=== PATIENT | female | born 1965 | race Caucasian/White ===

== ENCOUNTER 2017-10-10 13:30 | Emergency (ER) | payer OTHER ==
[~2017-10-10] VITALS: Ht 167.6 cm; Wt 115.2 kg
[~2017-10-10 13:30] MED LIST: ASPIRIN BUFFER325 MG PO; ASPIRIN325 MG PO; ATENOLOL50 MG PO; ATROVENT HFA12.9 GM NEB; BUPROPION XL300 MG PO; CARAFATE1 GM PO; CLONAZEPAM0.5 MG; CLONAZEPAM0.5 MG PO; COLACE100 MG PO; CYMBALTA60 MG; DEXILANT60 MG; FLUOXETINE HCL20 M1 PO; GABAPENTIN300 MG PO; GLIMEPIRIDE2 MG PO; HUMALOG100 UNIT/3 SQ; INVOKAMET PO; ISOSORBIDE MONO30 MG PO; Insulin Detemir SQ; Insulin Lispro SQ; LANTUS 3ML100 UNITS/ SQ; LEVOTHYROXINE50 MCG PO; MAGNESIUM OXID400 MG PO; METFORMIN HCL500 MG PO; METOPROLOL SUCC25 MG PO; METOPROLOL TART25 MG PO; MONTELUKAST SOD10 MG PO; MULTI-VITAMIN1 EACH PO; NORCO 5-325 TA1 EACH PO; OLANZAPINE10 MG PO; OLANZAPINE5 MG PO; OMEPRAZOLE20 M1 PO; PANTOPRAZOLE SO40 MG PO; POTASSIUM CHLO10 ME1 PO; TIZANIDINE HCL4 MG PO; TOPIRAMATE100 MG PO; TORSEMIDE20 MG PO
--- OUTSIDE RECORDS SUMMARY | 2017-10-10 13:33 | XMS REPORT ---
Author Author [facility] Address Unknown Phone Unavailable Care Team Providers Care Yarn Weight And Strength Tester Name Role Phone FRANNIE STEINBERG Unavailable Unavailable KATE BANGURA Unavailable Unavailable Problems This patient has no known problems. Allergies, Adverse Reactions, Alerts This patient has no known allergies or adverse reactions. Medications This patient has no known medications. Results Test Description Test Time Test Comments Text Results Atomic Results Result Comments ECHO COMPLETE (ECHOCARDIOGRAM) [place] [address] Patient Name : DEVAN REAL MR #: [id number] : 1965 Age/Sex: 51/F Adm Physician : FRANNIE STEINBERG MD Admit Date : 05/05/17 Location : MED/SURG3 Room/Bed : [facility] REPORT: Cardiology Report DATE OF STUDY: May 05, 2017 ECHOCARDIOGRAM M-MODE: Top normal left atrial size. Left ventricular hypertrophy. Normal contractility. Normal mitral aortic valves. No pericardial effusion. SECTOR SCAN: Top normal left atrial size measuring 6 x 3 cm. Left ventricular hypertrophy. Normal contractility. Ejection fraction is approximately 60%. Mitral aortic and tricuspid valves are grossly normal. There is no pericardial effusion. CARDIAC DOPPLER STUDY WITH COLOR: Trace mitral tricuspid and pulmonic regurgitation. CONCLUSIONS: 1. Trace mitral regurgitation with top normal left atrial size measuring 6 x 3 cm. 2. Trace mitral and pulmonic regurgitation with pulmonary artery systolic pressure estimated at 34 mmHg. 3. Left ventricular ejection fraction is approximately 60%. DD : 05/05/2017 13:47 Job#: [id number] cc: JODI CHOWDARY MD Signature Date Dictated By: FRANNIE STEINBERG MD Transcribed By: MIREILLE on 05/05/17 <Electronically signed by FRANNIE STEINBERG MD><<Signature on File>>05/07/17 1126 COPY TO: CHEST SINGLE (PORTABLE) [place] [address] Patient Name: DEVAN REAL MR #: [id number] : 1965 Age/Sex: 51/F Req #: [id number] Adm Physician: Ordered by: DILIA LOMELI MD Report #: [id number] Location: ER Room/Bed: ___ Procedure: [id number] DX/CHEST SINGLE (PORTABLE) Exam Date: 05/04/17 Exam Time: 2345 REPORT STATUS: Signed EXAM: CHEST SINGLE (PORTABLE), AP 1 view DATE: 05/04/2017 11:24 PM Time stamp on exam: 2345 hours INDICATION: Chest pain COMPARISON: None FINDINGS: LINES/TUBES: None LUNGS: No consolidations or edema. PLEURA: No effusions or pneumothorax. HEART AND MEDIASTINUM: Normal size and contour. BONES AND SOFT TISSUES: No acute findings. IMPRESSION: No acute thoracic abnormality. Signed by: Dr. Janette Lowery M.D. on 2016 12:05 AM Dictated By: JANETTE LOWERY MD 0005 Transcribed By: MILI on 05/05/17 0005 COPY TO: DILIA LOMELI MD CT BRAIN WO [address] [place], [place] [address] Patient Name: DEVAN REAL MR #: [id number] : 1965 Age/Sex: 51/F Req #: [id number] Adm Physician: Ordered by: KATE BANGURA MD Report #: [id number] Location: ER Room/Bed: Procedure: [id number] CT/CT BRAIN WO Exam Date: Exam Time: REPORT STATUS: Signed History: Headache Comparison studies: None Technique: Axial images were obtained from the skull base to the vertex. Coronal and sagittal reconstructions obtained from the axial data. Findings: Scalp/skull: No abnormalities. No fractures, blastic or lytic lesions. Extra-axial spaces: No masses. No fluid collections. Brain sulci: Appropriate for age. Ventricles: Normal in size and configuration. No hydrocephalus. Parenchyma: No abnormal densities. No masses, hemorrhage, acute or chronic cortical vascular insults. Sellar/suprasellar region: No abnormalities Craniocervical junction: Patent foramen magnum. No Chiari one malformation. IMPRESSION: No abnormalities Signed by: Dr. Martin Benitez M.D. on 04/10/2017 3:15 AM Dictated By: MARTIN BENITEZ MD, MD 4 COPY TO: KATE BANGURA MD CT ABDOMEN/PELVIS WO [place] [id number] [place] [address] Patient Name: DEVAN REAL MR #: [id number] : 1965 Age/Sex: 51/F Req #: [id number] Adm Physician: Ordered by: KATE BANGURA MD Report #: [id number] Location: ER Room/Bed: Procedure: [id number] CT/CT ABDOMEN/PELVIS WO Exam Date: 04/09/17 Exam Time: 0121 REPORT STATUS: Signed EXAM: CT ABDOMEN AND PELVIS without IV CONTRAST DATE: 04/08/2017 11:53 PM Time stamp on Exam: 0123 hours INDICATION: Abdominal pain, nausea COMPARISON: MRCP November 08, 2007 TECHNIQUE: The abdomen and pelvis were scanned using a multidetector helical scanner. Coronal and sagittal reformations were obtained. Routine protocol performed. IV Contrast: None Oral Contrast: Gastrografin CTDIvol has been reviewed. It is below the limits set by the Radiation Protocol Committee (RPC). FINDINGS: LOWER THORAX: No consolidations LIVER : Diffuse hepatic steatosis. Hepatomegaly. BILIARY: The gallbladder has been removed. No ductal dilation. SPLEEN: No masses PANCREAS: There is an approximately 4 cm stent that extends from the second portion of the duodenum into the pancreatic head. ADRENALS: No nodules KIDNEYS: No nephroureterolithiasis or hydronephrosis. GI TRACT: No distention, wall thickening or evidence of obstruction. Nonspecific debris in the stomach. VESSELS: Unremarkable PERITONEUM/RETROPERITONEUM: No free air or fluid LYMPH NODES: No lymphadenopathy REPRODUCTIVE ORGANS: Not visualized BLADDER: Unremarkable SOFT TISSUES: Nonspecific 1.5 x 1.1 cm nodule in the posterior medial aspect of the right breast. BONES: No suspicious bone lesions. IMPRESSION: 1. Hepatomegaly and hepatic steatosis. 2. There is a 4 cm stent that extends from the second portion of the duodenum into the pancreatic head, presumably a pancreatic duct stent. Limited evaluation for pancreatic masses secondary to lack of IV contrast. 3. Nonspecific 1.5 x 1.1 cm nodule in the posterior medial aspect of the right breast. Correlation with breast imaging is recommended. Signed by: Dr. Janette Lowery M.D. on 04/09/2017 2:09 AM Dictated By: JANETTE LOWERY MD 8 Transcribed By: MILI on 04/09/17208 COPY TO: KATE BANGURA MD
[2017-10-10] MEDS ORDERED: ASPIRIN 81 MG CHEW TAB PO ONE (14:30)
[2017-10-10 14:38] LABS: BILIRUBIN,URINE NEGATIVE (NEGATIVE); KETONES,URINE NEGATIVE (NEGATIVE); LEUKOCYTE ESTERASE ,URINE NEGATIVE (NEGATIVE); NITRITE,URINE NEGATIVE (NEGATIVE); PROTEIN,URINE DIPSTICK NEGATIVE (NEGATIVE); URINE UROBILINOGEN 0.2 mg/dL (0.2 - 1)
[2017-10-10 14:45] LABS: CLARITY,URINE CLEAR (CLEAR); COLOR,URINE YELLOW (YELLOW)
[2017-10-10] MEDS ORDERED: IBUPROFEN 600 MG TAB PO STA (14:50)
[2017-10-10 15:03] LABS: BASOPHILS # (AUTO) 0.1 (0.0-0.1); BASOPHILS % 0.5 % (0.0-1.0); EOSINOPHILS # (AUTO) 0.5 (0.0-0.4); EOSINOPHILS % 4.6 % (0.0-6.0); HEMATOCRIT 44.1 % (34.2-44.1); HEMOGLOBIN 14.4 g/dL (12.0-16.0); LYMPHOCYTES # (AUTO) 2.5 (1.0-3.2); LYMPHOCYTES % 25.8 % (18.0-39.1); MEAN CORPUSCULAR HEMOGLOBIN 30.1 pg (28-32); MEAN CORPUSCULAR HGB CONC 32.7 g/dL (31-35); MEAN CORPUSCULAR VOLUME 92.1 fL (81-99); MONOCYTES # (AUTO) 0.7 (0.2-0.8); MONOCYTES % 7.3 % (4.4-11.3); NEUTROPHILS % 61.5 % (38.7-80.0); PLATELET COUNT 274 x10e3/uL (140-360); RED BLOOD COUNT 4.79 x10e6/uL (3.6-5.1); RED CELL DISTRIBUTION WIDTH 14.6 % (11.7-14.4)
[2017-10-10 15:12] LABS: BACTERIA,URINE FEW /HPF; EPITHELIAL CELLS,URINE MODERATE /LPF
[2017-10-10 15:13] LABS: INR 0.94; PROTHROMBIN TIME 11.8 seconds (11.9-14.5)
[2017-10-10 15:14] LABS: PARTIAL THROMBOPLASTIN TIME 28.2 seconds (23.8-35.5)
--- NOTE | 2017-10-10 15:19 | Diagnostic Imaging Report ---
PROCEDURE: A single AP view of the chest. COMPARISON: Patients [facility], CT, CT ABDOMEN/PELVIS WO, 04/09/2017, 1:21. Patients [facility], DX, CHEST SINGLE (PORTABLE), 05/04/2017, 23:45. INDICATIONS: CHEST PAIN TO CENTER OF CHEST FINDINGS: Lines/tubes: None. Lungs: The lungs are well inflated and clear. There is no evidence of pneumonia or pulmonary edema. Pleura: There is no pleural effusion or pneumothorax. Stable eventration of the right hemidiaphragm. Heart and mediastinum: The heart and the mediastinum are unremarkable. Bones: No acute bony abnormality. IMPRESSION: 1. No acute cardiopulmonary abnormalities. Vic Pham M.D. Dictated by: Vic Pham M.D. on 10/10/2017 at 15:19 Electronically approved by: Vic Pham M.D. on 10/10/2017 at 15:19
[2017-10-10 15:22] LABS: ALANINE AMINOTRANSFERASE 98 IU/L (0-55); ALBUMIN 3.9 g/dL (3.5-5.0); ALBUMIN/GLOBULIN RATIO 0.9 (0.8-2.0); ALKALINE PHOSPHATASE 160 IU/L (40-150); ANION GAP 13.7 mmol/L (8-16); BLOOD UREA NITROGEN 17 mg/dL (7-26); BUN/CREATININE RATIO 20 (6-25); CALCIUM 9.2 mg/dL (8.4-10.2); CARBON DIOXIDE 21 mmol/L (22-29); CHLORIDE 110 mmol/L (98-107); CREATINE KINASE 58 IU/L (29-168); CREATININE, SERUM 0.86 mg/dL (0.57-1.11); EST GLOMERULAR FILTRATION RATE > 60 ML/MIN (60-); GLUCOSE 214 mg/dL (74-118); POTASSIUM 3.7 mmol/L (3.5-5.1); SODIUM 141 mmol/L (136-145)
[2017-10-10 23:41] VITALS: BP 121/89
== END 2017-10-10 20:40 | disposition home or self-care (01) ==
LOC: ER 13:30
DX: R07.89 Other chest pain (principal); I10 Essential (primary) hypertension; E11.9 Type 2 diabetes mellitus without complications
CPT/HCPCS: 36415; 71045; 80053; 81001; 82550; 82553; 83880; 84484; 85025; 85610; 85730; 87086; 93005; 99284

== ENCOUNTER 2017-12-12 20:35 | Emergency (ER) | payer OTHER ==
[~2017-12-12] VITALS: Ht 167.6 cm; Wt 115.2 kg
[2017-12-12 21:12] LABS: BASOPHILS # (AUTO) 0.1 (0.0-0.1); BASOPHILS % 0.6 % (0.0-1.0); EOSINOPHILS # (AUTO) 0.4 (0.0-0.4); EOSINOPHILS % 4.1 % (0.0-6.0); HEMATOCRIT 42.6 % (34.2-44.1); HEMOGLOBIN 14.2 g/dL (12.0-16.0); LYMPHOCYTES # (AUTO) 2.7 (1.0-3.2); LYMPHOCYTES % 28.2 % (18.0-39.1); MEAN CORPUSCULAR HGB CONC 33.3 g/dL (31-35); MEAN CORPUSCULAR VOLUME 89.9 fL (81-99); MONOCYTES # (AUTO) 0.6 (0.2-0.8); MONOCYTES % 6.7 % (4.4-11.3); NEUTROPHILS # (AUTO) 5.8 (2.1-6.9); NEUTROPHILS % 60.1 % (38.7-80.0); PLATELET COUNT 247 x10e3/uL (140-360); RED BLOOD COUNT 4.74 x10e6/uL (3.6-5.1); RED CELL DISTRIBUTION WIDTH 13.7 % (11.7-14.4)
[2017-12-12 21:17] LABS: CLARITY,URINE CLEAR (CLEAR); COLOR,URINE YELLOW (YELLOW)
[2017-12-12 21:18] LABS: AMPHETAMINES SCREEN,URINE NEGATIVE (NEGATIVE); BENZODIAZEPINES SCREEN,URINE NEGATIVE (NEGATIVE); BILIRUBIN,URINE NEGATIVE (NEGATIVE); KETONES,URINE NEGATIVE (NEGATIVE); LEUKOCYTE ESTERASE ,URINE NEGATIVE (NEGATIVE); NITRITE,URINE NEGATIVE (NEGATIVE); PHENCYCLIDINE SCREEN,URINE NEGATIVE (NEGATIVE); PREGNANCY TEST, URINE NEGATIVE (NEGATIVE); PROTEIN,URINE DIPSTICK NEGATIVE (NEGATIVE); URINE UROBILINOGEN 0.2 mg/dL (0.2 - 1)
[2017-12-12 21:22] LABS: INR 0.97; MUCUS,URINE FEW (RARE); PROTHROMBIN TIME 12.1 seconds (11.9-14.5); RBC,URINE 0-5 /HPF (0-5); WBC,URINE (MAN) 0-5 /HPF (0-5)
[2017-12-12 21:23] LABS: PARTIAL THROMBOPLASTIN TIME 27.1 seconds (23.8-35.5)
[2017-12-12 21:28] LABS: ACETAMINOPHEN < 3 ug/mL (10-30); SALICYLATE < 5.0 mg/dL (0-30)
[2017-12-12 21:31] LABS: ALANINE AMINOTRANSFERASE 128 IU/L (0-55); ALBUMIN 3.6 g/dL (3.5-5.0); ALBUMIN/GLOBULIN RATIO 0.9 (0.8-2.0); ALKALINE PHOSPHATASE 166 IU/L (40-150); ANION GAP 16.2 mmol/L (8-16); BLOOD UREA NITROGEN 6 mg/dL (7-26); BUN/CREATININE RATIO 8 (6-25); CARBON DIOXIDE 25 mmol/L (22-29); CHLORIDE 102 mmol/L (98-107); CREATINE KINASE 91 IU/L (29-168); CREATININE, SERUM 0.78 mg/dL (0.57-1.11); EST GLOMERULAR FILTRATION RATE > 60 ML/MIN (60-); GLUCOSE 234 mg/dL (74-118); POTASSIUM 3.2 mmol/L (3.5-5.1); SODIUM 140 mmol/L (136-145)
[2017-12-12 21:50] LABS: THYROID STIMULATING HORMONE 12.722 uIU/mL (0.350-4.940)
[2017-12-12] MEDS ORDERED: POTASSIUM CHLORIDE 20 MEQ TAB CR PO ONE (22:15)
[2017-12-12] MEDS ORDERED: OLANZAPINE5 MG PO (22:48)
[2017-12-12] MEDS ORDERED: CLONAZEPAM0.5 MG PO (22:48)
[2017-12-12] MEDS ORDERED: PANTOPRAZOLE SO40 MG PO (22:48)
[2017-12-12] MEDS ORDERED: METOCLOPRAMIDE10 MG PO (22:48)
[2017-12-12] MEDS ORDERED: SYNTHROID75 MCG PO (22:48)
[2017-12-12] MEDS ORDERED: POTASSIUM CHLO10 ME1 PO (22:48)
[2017-12-13] MEDS ORDERED: ACETAMINOPHEN 325 MG TAB PO ONE (01:15)
[2017-12-13] MEDS ORDERED: SYNJARDY XR PO (03:25)
[2017-12-13 03:56] VITALS: BP 139/87
== END 2017-12-13 04:45 ==
LOC: ER 20:35
DX: F33.1 Major depressive disorder, recurrent, moderate (principal); R45.851 Suicidal ideations; E11.9 Type 2 diabetes mellitus without complications; E03.9 Hypothyroidism, unspecified; I50.9 Heart failure, unspecified; F41.0 Panic disorder [episodic paroxysmal anxiety]
CPT/HCPCS: 36415; 80053; 80307; 80320; 80329; 81001; 81025; 82550; 82553; 82948; 84443; 84484; 85025; 85610; 85730; 87086; 93005; 99284

== ENCOUNTER 2018-02-01 23:12 | Emergency (ER) | payer OTHER ==
[~2018-02-01] VITALS: Ht 167.6 cm; Wt 115.2 kg
[~2018-02-01 23:12] MED LIST changes: +METOCLOPRAMIDE10 MG PO; +SYNJARDY XR PO; +SYNTHROID75 MCG PO
[2018-02-01 23:33] LABS: BASOPHILS # (AUTO) 0.1 (0.0-0.1); BASOPHILS % 0.6 % (0.0-1.0); EOSINOPHILS # (AUTO) 0.4 (0.0-0.4); EOSINOPHILS % 3.2 % (0.0-6.0); HEMATOCRIT 40.2 % (34.2-44.1); HEMOGLOBIN 13.7 g/dL (12.0-16.0); LYMPHOCYTES # (AUTO) 3.3 (1.0-3.2); LYMPHOCYTES % 26.7 % (18.0-39.1); MEAN CORPUSCULAR HGB CONC 34.1 g/dL (31-35); MONOCYTES # (AUTO) 0.8 (0.2-0.8); NEUTROPHILS # (AUTO) 7.9 (2.1-6.9); NEUTROPHILS % 63.1 % (38.7-80.0); PLATELET COUNT 306 x10e3/uL (140-360); RED BLOOD COUNT 4.42 x10e6/uL (3.6-5.1); RED CELL DISTRIBUTION WIDTH 13.9 % (11.7-14.4)
[2018-02-01 23:57] LABS: ALANINE AMINOTRANSFERASE 122 IU/L (0-55); ALBUMIN 3.8 g/dL (3.5-5.0); ALKALINE PHOSPHATASE 199 IU/L (40-150); ANION GAP 14.2 mmol/L (8-16); BLOOD UREA NITROGEN 9 mg/dL (7-26); BUN/CREATININE RATIO 11 (6-25); CALCIUM 9.2 mg/dL (8.4-10.2); CARBON DIOXIDE 21 mmol/L (22-29); CHLORIDE 105 mmol/L (98-107); CREATINE KINASE 82 IU/L (29-168); CREATININE, SERUM 0.81 mg/dL (0.57-1.11); EST GLOMERULAR FILTRATION RATE > 60 ML/MIN (60-); GLUCOSE 257 mg/dL (74-118); POTASSIUM 3.2 mmol/L (3.5-5.1); SODIUM 137 mmol/L (136-145)
--- NOTE | 2018-02-02 00:05 | Diagnostic Imaging Report ---
EXAM: CHEST SINGLE (PORTABLE), AP 1 view INDICATION: Midsternal chest pain COMPARISON: AP view the chest the 2017 FINDINGS: LINES/TUBES: None LUNGS: No consolidations or edema. Stable perihilar bronchial thickening. PLEURA: No effusions or pneumothorax. HEART AND MEDIASTINUM: Normal size and contour. Stable central vascular prominence. BONES AND SOFT TISSUES: No acute findings. IMPRESSION: No acute thoracic abnormality. Signed by: Dr. Jaylyn Lowery M.D. on 02/02/2018 12:01 AM
== END 2018-02-02 00:15 | disposition home or self-care (01) ==
LOC: ER 23:12
DX: R09.1 Pleurisy (principal); I50.9 Heart failure, unspecified; E03.9 Hypothyroidism, unspecified; E11.9 Type 2 diabetes mellitus without complications; Z79.84 Long term (current) use of oral hypoglycemic drugs; F41.0 Panic disorder [episodic paroxysmal anxiety]; Z79.82 Long term (current) use of aspirin; Z91.040 Latex allergy status; Z88.5 Allergy status to narcotic agent; Z91.048 Other nonmedicinal substance allergy status
CPT/HCPCS: 36415; 71045; 80053; 82550; 82553; 84484; 85025; 85379; 93005; 99284

== ENCOUNTER 2018-03-31 18:22 | Emergency (ER) | payer OTHER ==
[~2018-03-31] VITALS: Ht 162.6 cm; Wt 110.7 kg
[~2018-03-31 18:22] MED LIST changes: +TRAMADL/APAP
[2018-03-31] MEDS ORDERED: KETOROLAC TROMETHAMINE 60 MG/2 ML VIAL IM ONE (22:45)
[2018-03-31] MEDS ORDERED: ORPHENADRINE CITRATE 30 MG/ML VIAL IM ONE (22:45)
[2018-03-31] MEDS ORDERED: HYDROCODONE/APAP 5MG-325MG TAB PO ONE (22:45)
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
== END 2018-04-01 00:31 | disposition home or self-care (01) ==
LOC: ER 18:22
DX: G89.11 Acute pain due to trauma (principal); M54.2 Cervicalgia; S16.1XXA Strain of muscle, fascia and tendon at neck level, initial encounter; M25.512 Pain in left shoulder; M54.5 Low back pain; S39.012A Strain of muscle, fascia and tendon of lower back, initial encounter; V53.5XXA Driver of pick-up truck or van injured in collision with car, pick-up truck or van in traffic accident, initial encounter; Y92.488 Other paved roadways as the place of occurrence of the external cause; I50.9 Heart failure, unspecified; I10 Essential (primary) hypertension; E78.5 Hyperlipidemia, unspecified; E07.9 Disorder of thyroid, unspecified
CPT/HCPCS: 72050; 72110; 73030; 99283; J1885; J2360

== ENCOUNTER 2018-07-15 21:26 | Emergency (ER) | payer OTHER ==
[~2018-07-15] VITALS: Ht 162.6 cm; Wt 110.7 kg
[~2018-07-15 21:26] MED LIST changes: +BUPROPION XL150 MG PO; +NORTRIPTYLINE H25 MG PO; +OXYBUTYNIN CHLOR5 MG PO; +TERBINAFINE HC250 MG PO; +ZOLPIDEM TARTRA10 MG PO
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
[2018-07-15] MEDS ORDERED: PANTOPRAZOLE 40 MG 10ML VIAL IV STA (22:02)
[2018-07-15] MEDS ORDERED: ONDANSETRON HCL INJ 2 MG/ML VIAL IV STA (22:02)
[2018-07-15] MEDS ORDERED: ONDANSETRON HCL 4 MG ORAL DISINTEGRATING TAB ONE (22:05)
[2018-07-15] MEDS ORDERED: LIDOCAINE VISC 2% SOLN 15 ML UDC ONE (22:05)
[2018-07-15] MEDS ORDERED: PANTOPRAZOLE 40 MG 10ML VIAL ONE (22:06)
[2018-07-15] MEDS ORDERED: BELLADONNA ALK/PHENOBARBITAL 5 ML UDC ONE (22:06)
[2018-07-15] MEDS ORDERED: MAGNESIUM/ALUMINUM/SIMETHICONE 30 ML UDC ONE (22:06)
[2018-07-15] MEDS ORDERED: METOCLOPRAMIDE HCL 10 MG/2ML VIAL ONE (22:06)
[2018-07-15 22:14] LABS: BASOPHILS # (AUTO) 0.1 (0.0-0.1); BASOPHILS % 0.7 % (0.0-1.0); EOSINOPHILS # (AUTO) 0.4 (0.0-0.4); EOSINOPHILS % 3.7 % (0.0-6.0); HEMATOCRIT 41.4 % (34.2-44.1); HEMOGLOBIN 14.5 g/dL (12.0-16.0); LYMPHOCYTES # (AUTO) 3.3 (1.0-3.2); LYMPHOCYTES % 30.3 % (18.0-39.1); MEAN CORPUSCULAR HEMOGLOBIN 31.3 pg (28-32); MEAN CORPUSCULAR VOLUME 89.4 fL (81-99); MONOCYTES # (AUTO) 0.5 (0.2-0.8); MONOCYTES % 4.7 % (4.4-11.3); NEUTROPHILS # (AUTO) 6.6 (2.1-6.9); NEUTROPHILS % 60.3 % (38.7-80.0); PLATELET COUNT 287 x10e3/uL (140-360); RED BLOOD COUNT 4.63 x10e6/uL (3.6-5.1); RED CELL DISTRIBUTION WIDTH 13.2 % (11.7-14.4)
[2018-07-15] MEDS ORDERED: MAGNESIUM/ALUMINUM/SIMETHICONE 30 ML UDC PO ONE (22:15)
[2018-07-15] MEDS ORDERED: METOCLOPRAMIDE HCL 10 MG/2ML VIAL IV ONE (22:15)
[2018-07-15] MEDS ORDERED: LIDOCAINE VISC 2% SOLN 15 ML UDC PO ONE (22:15)
[2018-07-15] MEDS ORDERED: BELLADONNA ALK/PHENOBARBITAL 5 ML UDC PO ONE (22:15)
[2018-07-15 22:23] LABS: BILIRUBIN,URINE NEGATIVE (NEGATIVE); CLARITY,URINE CLEAR (CLEAR); COLOR,URINE YELLOW (YELLOW); KETONES,URINE NEGATIVE (NEGATIVE); LEUKOCYTE ESTERASE ,URINE NEGATIVE (NEGATIVE); NITRITE,URINE NEGATIVE (NEGATIVE); PROTEIN,URINE DIPSTICK NEGATIVE (NEGATIVE); URINE UROBILINOGEN 0.2 mg/dL (0.2 - 1)
[2018-07-15 22:26] LABS: EPITHELIAL CELLS,URINE FEW /LPF; MUCUS,URINE MANY (RARE); RBC,URINE 0-5 /HPF (0-5); WBC,URINE (MAN) 0-5 /HPF (0-5)
[2018-07-15 22:34] LABS: ALANINE AMINOTRANSFERASE 26 IU/L (0-55); ALBUMIN 4.1 g/dL (3.5-5.0); ALKALINE PHOSPHATASE 159 IU/L (40-150); AMYLASE 34 U/L (25-125); ANION GAP 16.1 mmol/L (8-16); BLOOD UREA NITROGEN 10 mg/dL (7-26); BUN/CREATININE RATIO 12 (6-25); CALCIUM 10.7 mg/dL (8.4-10.2); CARBON DIOXIDE 22 mmol/L (22-29); CHLORIDE 100 mmol/L (98-107); CREATINE KINASE 110 IU/L (29-168); CREATININE, SERUM 0.81 mg/dL (0.57-1.11); EST GLOMERULAR FILTRATION RATE > 60 ML/MIN (60-); GLUCOSE 250 mg/dL (74-118); LIPASE 36 U/L (8-78); POTASSIUM 3.1 mmol/L (3.5-5.1); SODIUM 135 mmol/L (136-145)
[2018-07-16 00:31] VITALS: BP 117/87
== END 2018-07-16 00:43 | disposition home or self-care (01) ==
LOC: ER 21:26
DX: R10.13 Epigastric pain (principal); R11.0 Nausea; K29.00 Acute gastritis without bleeding; E11.9 Type 2 diabetes mellitus without complications; I50.9 Heart failure, unspecified; E03.9 Hypothyroidism, unspecified; F41.9 Anxiety disorder, unspecified; F32.9 Major depressive disorder, single episode, unspecified
CPT/HCPCS: 36415; 80053; 81001; 82150; 82550; 82553; 83690; 84484; 85025; 93005; 99284; J2765; Q0162

== ENCOUNTER 2018-07-25 00:32 | Emergency (ER) | payer OTHER ==
[~2018-07-25] VITALS: Ht 162.6 cm; Wt 110.7 kg
--- OUTSIDE RECORDS SUMMARY | 2018-07-25 00:35 | XMS REPORT | Clinical Summary ---
Author Author [facility] Address Unknown Phone Unavailable Care Team Providers Care Field Operator Name Role Phone Halima Castro MD PCP [...] 02/06/2018 Office Visit Obstetrics and Gynecology after 07/24/2017 Family History Medical History Relation Name Comments [...] Health Maintenance Due Date Last Done Comments CERVICAL CANCER SCREENING 1986 BREAST CANCER SCREENING [...] 03/20/2018 Urinary incontinence in RESIDUAL female after 07/24/2017 Results * POC urinalysis dipstick (03/20/2018 1:25 [...] (03/20/2018) Total volume, urine 0 ML after 07/24/2017 Insurance Payer Benefit Subscriber ID Type Phone Address Plan / Group [facility] xxxxxxxxx HMO/PPO THCARE CHOICE/CHO ICE + ([place]) [place] [address] Advance Directives Patient has advance care planning documents on file. For more information, barrie razo contact: Micah Michael [address] [facility] [place] [address]
--- OUTSIDE RECORDS SUMMARY | 2018-07-25 01:09 | XMS REPORT | Clinical Summary ---
Author Author [facility] Address Unknown Phone Unavailable Care Team Providers Care Software Systems Architect Name Role Phone Halima Castro MD PCP [...] ID Type Phone Address Plan / Group [facility] xxxxxxxxx HMO/PPO THCARE CHOICE/CHO ICE + ([place]) [place] [address] Advance Directives Patient has advance care planning documents on file. For more information, barrie razo contact: Micah Michael [address] [place] [facility] [place] [address]
[2018-07-25] MEDS ORDERED: ACETAMIN/BUTALBITAL/CAFFEINE TAB PO ONE (01:30)
--- NOTE | 2018-07-25 01:53 | Diagnostic Imaging Report ---
EXAMINATION: Head CT HISTORY: Headache. COMPARISON: Head CT on 06/28/2018 and 04/10/2017 TECHNIQUE: Multidetector axial images were obtained without contrast from the foramen magnum to the vertex . The images were reconstructed using brain and bone algorithms. Thin section brain images were reformatted into coronal and sagittal planes. Image quality: Motion/streaking artifact limits the evaluation of the skull base and posterior cranial fossa. Dose modulation, iterative reconstruction, and/or weight based adjustment of the mA/kV was utilized to reduce the radiation dose to as low as reasonably achievable. FINDINGS: Parenchyma: 1. No abnormal densities. 2. No mass or hemorrhage. No CT evidence of acute territorial vascular insult. Extra-axial spaces:No abnormal density. No extra-axial fluid collections Brain volume: Normal for age. Ventricles: No hydrocephalus or displacement. Arteries: No density suggestive of thrombus. Dural sinuses: No abnormal density. Extra-axial spaces: No abnormal density. Foramen magnum: No mass, Chiari malformation, or basilar invagination. Sella: No obvious mass. Paranasal/mastoid sinuses: Imaged portions unremarkable. Skull/Scalp: No lytic or blastic lesions. No fractures. IMPRESSION: Normal head CT, unchanged from prior head CT on 06/28/2018. Signed by: Dr. Lara Crowe M.D. on 07/25/2018 1:49 AM
== END 2018-07-25 02:51 | disposition home or self-care (01) ==
LOC: ER 01:07
DX: G43.009 Migraine without aura, not intractable, without status migrainosus (principal); I11.0 Hypertensive heart disease with heart failure; I50.9 Heart failure, unspecified; E11.43 Type 2 diabetes mellitus with diabetic autonomic (poly)neuropathy; K31.84 Gastroparesis; Z79.4 Long term (current) use of insulin; E03.9 Hypothyroidism, unspecified; F41.0 Panic disorder [episodic paroxysmal anxiety]; Z79.82 Long term (current) use of aspirin
CPT/HCPCS: 36415; 70450; 82948; 99283

== ENCOUNTER 2018-08-16 17:44 | Emergency (ER) | payer OTHER ==
[~2018-08-16] VITALS: Ht 162.6 cm; Wt 110.7 kg
--- OUTSIDE RECORDS SUMMARY | 2018-08-16 17:47 | XMS REPORT | Clinical Summary ---
Author Author [facility] Address Unknown Phone Unavailable Care Team Providers Care Cnc Router Operator Name Role Phone Halima Castro MD [...] 02/06/2018 Office Visit Obstetrics and Gynecology after 08/15/2017 Family History Medical History Relation Name Comments [...] CANCER SCREENING 2015 COLON CANCER SCREENING 2015 SHINGLES VACCINES ( of 2015 2) INFLUENZA VACCINE 03/19/2018 Procedures Comments Procedure Name Priority Date/Time Associated Diagnosis POC URINALYSIS DIPSTICK Routine 03/20/2018 Urinary incontinence in 1:25 PM CDT female MEASURE POST VOID Routine 03/20/2018 Urinary incontinence in RESIDUAL female after 08/15/2017 Results * POC urinalysis dipstick (03/20/2018 1:25 [...] (03/20/2018) Total volume, urine 0 ML after 08/15/2017 Insurance Payer Benefit Subscriber ID Type Phone Address Plan / Group [facility] xxxxxxxxx HMO/PPO THCARE CHOICE/CHO ICE + ([place]) [place] [address] Advance Directives Patient has advance care planning documents on file. For more information, barrie razo contact: Micah Michael [address] [place] [address]
--- OUTSIDE RECORDS SUMMARY | 2018-08-16 17:48 | XMS REPORT ---
Author Author Samantha Whiting [employer] Address Unknown Phone Unavailable Care Team Providers Care Business Partner Name Role Phone Samantha Whiting Unavailable Encounters Encounter Location Date 3wk f/u--[facility] October 20, 2015 VQ Scan Auth: [facility] October 28, 2015 D/c O2 [facility] November 24, 2015 Sleep Study [facility] December 23, 2014 N/P Ref by [facility] Aug 22, 2015 low k [facility] Sep 29, 2015 Problems Problem Type Condition ICD-9 Code Onset Dates Condition Status Problem Obesity, unspecified E66.9 Active Problem Type 2 diabetes mellitus with hyperglycemia E11.65 Active Problem Major depressive disorder, single episode, unspecified F32.9 Active Problem Hypothyroidism, unspecified E03.9 Active Problem Anxiety disorder, unspecified F41.9 Active Problem Type 2 diabetes mellitus without complications E11.9 Active Problem Hypoxemia R09.02 Active Problem Generalized edema R60.1 Active Problem Mild persistent asthma, uncomplicated J45.30 Active Problem Shortness of breath R06.02 Active Problem DM - Diabetes mellitus without mention of complication, type II or unspecified type, not stated as uncontrolled 250.00 Active Problem Snoring 786.09 Active Problem Depressive disorder, not elsewhere classified 311 Active Problem Fatigue and Generalized Weakness 780.79 Active Problem Unspecified hypothyroidism 244.9 Active Problem Hypersomnia, unspecified 780.54 Active Social History Social History Element Qualifiers Date Reported Tobacco Use: . Patient is a: never smoker November 24, 2015 Alchohol: no. November 24, 2015 Summary Purpose [employer] Submission
--- OUTSIDE RECORDS SUMMARY | 2018-08-16 17:48 | XMS REPORT ---
Author Author Paulie Wooten [employer] Address Unknown Phone Unavailable Care Team Providers Care Insurance Sales Professional Name Role Phone Ava Wooten CP Unavailable Allergies, Adverse Reactions, Alerts Substance Reaction Event Type codeine Info Not Available Drug Allergy Iodine Info Not Available Drug Allergy Encounters Encounter Location Date Sleep Study [facility] December 23, 2014 N/P Ref by [facility] Aug 22, 2015 Problems Problem Type Condition ICD-9 Code Onset Dates Condition Status Problem Depressive disorder, not elsewhere classified 311 Active Problem DM - Diabetes mellitus without mention of complication, type II or unspecified type, not stated as uncontrolled 250.00 Active Problem Unspecified hypothyroidism 244.9 Active Problem Type 2 diabetes mellitus with hyperglycemia E11.65 Active Problem Major depressive disorder, single episode, unspecified F32.9 Active Problem Generalized edema R60.1 Active Problem Fatigue and Generalized Weakness 780.79 Active Problem Snoring 786.09 Active Problem Obesity, unspecified E66.9 Active Problem Hypersomnia, unspecified 780.54 Active Assessment Obesity, unspecified E66.9 Active Assessment Major depressive disorder, single episode, unspecified F32.9 Active Assessment Type 2 diabetes mellitus with hyperglycemia E11.65 Active Assessment Generalized edema R60.1 Active Medications Medication Code System Code Instructions Start Date End Date Status Dosage Fluoxetine Unknown 0 20 mg Orally three times a day (tid) Active 1 capsule in the morning Olanzapine [facility] [address]-72 15 MG Orally Once a day Active 1 tablet Clonazepam [facility] [address]-87 0.5 MG Orally Twice a day Active 1 tablet Levothyroxine Sodium [facility] [address]-44 100 MCG Orally Once a day Active 1 tablet Topiramate [facility] [address]-94 100 mg Orally twice a day (bid) Active 1 tablet Metolazone [facility] [address]-64 5 MG Orally every 24 hrs Active 1 tablet Vitamin D [facility] [address]-08 55240 Orally Once a day Active 1 capsule BuPROPion HCl (XL) [facility] [address]-69 300 MG Orally Once a day Active 1 tablet in the morning Metformin HCl [facility] [address]-32 500 MG Orally Twice a day Active 1 tablet with meals Aldactone [facility] [address]-47 50 mg Orally Once a day Aug 22, 2015 Aug 16, 2016 Active 1 tablet Aspirin 325 mg Unknown 0 325 mg orally daily Active one tab Abilify [facility] [address]-54 20 MG Orally Once a day Active 1 tablet Potassium Chloride ER [facility] [address]-45 20 MEQ Orally three times a day (tid) Active 1 tablet GlyBURIDE [facility] [address]-09 5 MG Orally Once a day Active 1 tablet Invokamet Unknown 0 150-1000 by mouth every other day Aug 22, 2015 Aug 16, 2016 Active as directed Social History Social History Element Qualifiers Date Reported Tobacco Use: . Patient is a: never smoker Aug 22, 2015 Alchohol: no. Aug 22, 2015 Vital Signs Date/Time: Aug 22, 2015 Weight 265 lbs Height 64.75 in Blood Pressure Diastolic 86 mm Hg Blood Pressure Systolic 122 mm Hg Respiratory Rate 16 /min Cardiac Monitoring Heart Rate 96 /min Summary Purpose [employer]ClinicalWorks Submission
--- OUTSIDE RECORDS SUMMARY | 2018-08-16 17:48 | XMS REPORT ---
Author Author Paulie Wooten eClinicalWorks Address Unknown Phone Unavailable Care Team Providers Care External Relations Manager Name Role Phone Ava Wooten CP Unavailable Allergies, Adverse Reactions, Alerts Substance Reaction Event Type codeine Info Not Available Drug Allergy Iodine Info Not Available Drug Allergy Encounters Encounter Location Date Sleep Study [facility] December 23, 2014 N/P Ref by [facility] Aug 22, 2015 low k [facility] Sep 29, 2015 Problems Problem Type [...] Instructions Start Date End Date Status Dosage Clonazepam [facility] [address]-09 0.5 MG Orally Twice a day Active 1 tablet BuPROPion HCl (XL) [facility] [address]-19 300 MG Orally Once a day Active 1 tablet in the morning Aspirin 325 mg Unknown 0 325 mg orally daily Active one tab Metolazone [facility] [address]-27 5 MG Orally every 24 hrs Active 1 tablet GlyBURIDE [facility] [address]-47 5 MG Orally Once a day Active 1 tablet Topiramate [facility] [address]-71 100 mg Orally twice a day (bid) Active 1 tablet Potassium Chloride ER [facility] [address]-69 20 MEQ Orally three times a day (tid) Active 1 tablet Magnesium Oxide [facility] [address]-90 400 MG Orally twice a day (bid) Sep 29, 2015 January 27, 2016 Active as directed Olanzapine [facility] [address]-44 15 MG Orally Once a day Active 1 tablet Invokamet Unknown 0 150-1000 by mouth once a day Mar 22, 2017 Active as directed Aldactone [facility] [address]-92 100 MG Orally Once a day Sep 23, 2016 Active 1 tablet Metformin HCl [facility] [address]-37 500 MG Orally Twice a day Active 1 tablet with meals Fluoxetine Unknown 0 20 mg Orally three times a day (tid) Active 1 capsule in the morning Invokamet Unknown 0 150-1000 by mouth every other day Aug 22, 2015 Aug 16, 2016 Active as directed Levothyroxine Sodium [facility] [address]-13 100 MCG Orally Once a day Active 1 tablet Aldactone [facility] [address]-42 50 mg Orally Once a day Aug 22, 2015 Aug 16, 2016 Inactive 1 tablet Tizanidine HCl [facility] [address]-12 2 MG Orally twice a day (bid) Sep 29, 2015 January 27, 2016 Active 1 tablet as needed Social History Social History Element Qualifiers Date Reported Tobacco Use: . Patient is a: never smoker Sep 29, 2015 Alchohol: no. Sep 29, 2015 Vital Signs Date/Time: Sep 29, 2015 Weight 258 lbs Height 64.75 in Blood Pressure Diastolic 82 mm Hg Blood Pressure Systolic 124 mm Hg Respiratory Rate 16 /min Cardiac Monitoring Heart Rate 106 /min Summary Purpose eClinicalWorks Submission
--- OUTSIDE RECORDS SUMMARY | 2018-08-16 17:48 | XMS REPORT ---
Author Author Parisa Johnston eClinicalWorks Address Unknown Phone Unavailable Care Team Providers Care Police Lieutenant Name Role Phone Parisa Johnston CP Unavailable Encounters Encounter Location Date 3wk f/u--[facility] October 20, 2015 VQ Scan Auth: [facility] October 28, 2015 Sleep Study [facility] December 23, 2014 N/P Ref by [facility] Aug 22, 2015 low k [facility] Sep 29, 2015 Problems Problem Type Condition ICD-9 Code Onset Dates Condition Status Problem DM - Diabetes mellitus without mention of complication, type II or unspecified type, not stated as uncontrolled 250.00 Active Problem Fatigue and Generalized Weakness 780.79 Active Problem Snoring 786.09 Active Problem Depressive disorder, not elsewhere classified 311 Active Problem Unspecified hypothyroidism 244.9 Active Problem Hypoxemia R09.02 Active Problem Generalized edema R60.1 Active Problem Shortness of breath R06.02 Active Problem Obesity, unspecified E66.9 Active Problem Hypersomnia, unspecified 780.54 Active Problem Type 2 diabetes mellitus with hyperglycemia E11.65 Active Problem Major depressive disorder, single episode, unspecified F32.9 Active Social History Social History Element Qualifiers Date Reported Tobacco Use: . Patient is a: never smoker October 20, 2015 Alchohol: no. October 20, 2015 Summary Purpose eClinicalWorks Submission
--- OUTSIDE RECORDS SUMMARY | 2018-08-16 17:48 | XMS REPORT ---
Author Author Parisa Johnston eClinicalWorks Address Unknown Phone Unavailable Care Team Providers Care Manager Assisted Living Name Role Phone Parisa Johnston CP Unavailable Encounters Encounter Location Date 3wk f/u--[facility] October 20, 2015 VQ Scan Auth: [facility] October 28, 2015 D/c O2 [place] November 24, [address] Auth: [facility] November 09, 2015 Sleep Study [facility] December 23, 2014 N/P Ref by [facility] Aug 22, 2015 low k [facility] Sep 29, 2015 Problems Problem Type Condition [...] Problem Shortness of breath R06.02 Active Problem Other fatigue R53.83 Active Problem Hypersomnia, unspecified G47.10 Active Problem Depressive disorder, not elsewhere classified 311 Active Problem Snoring 786.09 Active Social History Social History Element Qualifiers Date Reported Tobacco Use: . Patient is a: never smoker February 01, 2016 Alchohol: no. February 01, 2016 Summary Purpose eClinicalWorks Submission
--- OUTSIDE RECORDS SUMMARY | 2018-08-16 17:48 | XMS REPORT ---
Author Author Paulie Wooten eClinicalWorks Address Unknown Phone Unavailable Care Team Providers Care Event Staff Member Name Role Phone Mina Wooten Unavailable Allergies, Adverse Reactions, Alerts Substance Reaction Event Type codeine Info Not Available Drug Allergy Iodine Info Not Available Drug Allergy Encounters Encounter Location Date 3wk f/u--[facility] October 20, 2015 Sleep Study [facility] December 23, 2014 N/P Ref by [facility] Aug 22, 2015 low k [facility] Sep 29, 2015 Problems Problem Type Condition ICD-9 Code Onset Dates Condition Status Problem DM - Diabetes mellitus without mention of complication, type II or unspecified type, not stated as uncontrolled 250.00 Active Problem Fatigue and Generalized Weakness 780.79 Active Problem Snoring 786.09 Active Problem Hypoxemia R09.02 Active Problem Generalized edema R60.1 Active Problem Shortness of breath R06.02 Active Problem Obesity, unspecified E66.9 Active Problem Hypersomnia, unspecified 780.54 Active Problem Type 2 diabetes mellitus with hyperglycemia E11.65 Active Problem Major depressive disorder, single episode, unspecified F32.9 Active Assessment Type 2 diabetes mellitus with hyperglycemia E11.65 Active Assessment Generalized edema R60.1 Active Assessment Obesity, unspecified E66.9 Active Problem Depressive disorder, not elsewhere classified 311 Active Assessment Major depressive disorder, single episode, unspecified F32.9 Active Problem Unspecified hypothyroidism 244.9 Active Medications Medication Code System Code Instructions Start Date End Date Status Dosage BuPROPion HCl (XL) [facility] [address]-49 300 MG Orally Once a day Active 1 tablet in the morning Olanzapine [facility] [address]-57 15 MG Orally Once a day Active 1 tablet Aldactone [facility] [address]-70 100 MG Orally Once a day Sep 23, 2016 Active 1 tablet Potassium Chloride ER [facility] [address]-39 20 MEQ Orally three times a day (tid) Active 1 tablet Levothyroxine Sodium [facility] [address]-85 100 MCG Orally Once a day Active 1 tablet Invokamet Unknown 0 150-1000 by mouth once a day Mar 22, 2017 Active as directed Metolazone [facility] [address]-51 5 MG Orally every 24 hrs Active 1 tablet Metformin HCl [facility] [address]-84 500 MG Orally Twice a day Active 1 tablet with meals GlyBURIDE [facility] [address]-81 5 MG Orally Once a day Active 1 tablet Aldactone [facility] [address]-83 200 Orally Once a day Oct 14, 2016 Active 1 tablet Topiramate [facility] [address]-30 100 mg Orally twice a day (bid) Active 1 tablet Magnesium Oxide [facility] [address]-49 400 MG Orally twice a day (bid) Sep 29, 2015 January 27, 2016 Active as directed Tizanidine HCl [facility] [address]-51 2 MG Orally twice a day (bid) Sep 29, 2015 January 27, 2016 Active 1 tablet as needed Clonazepam [facility] [address]-77 0.5 MG Orally Twice a day Active 1 tablet Fluoxetine Unknown 0 20 mg Orally three times a day (tid) Active 1 capsule in the morning Metoprolol Succinate Unknown 0 25 mg Orally once a day Active 1 tablet Spironolactone [facility] [address]-14 50 MG Orally Once a day Active 1 tablet Aspirin 325 mg Unknown 0 325 mg orally daily Active one tab Invokamet Unknown 0 150-1000 by mouth every other day Aug 22, 2015 Aug 16, 2016 Active as directed MagOx 400 [facility] [address]78 400 (241.3 Mg) MG Orally twice a day (bid) Active 1 tablet Social History Social History Element Qualifiers Date Reported Tobacco Use: . Patient is a: never smoker October 20, 2015 Alchohol: no. October 20, 2015 Vital Signs Date/Time: October 20, 2015 Weight 260 lbs Height 64.75 in Blood Pressure Diastolic 80 mm Hg Blood Pressure Systolic 112 mm Hg Respiratory Rate 18 /min Temperature 98 F Summary Purpose eClinicalWorks Submission
--- OUTSIDE RECORDS SUMMARY | 2018-08-16 17:48 | XMS REPORT | Continuity of Care Document ---
Author Author [facility] Interface Address Unknown Phone Unavailable Problems Problem Status Onset Date Classification Date Reported Comments Source Depressive disorder, not elsewhere classified Active Problem 10/25/2016 [facility] DM - Diabetes mellitus without mention of complication, type II or unspecified type, not stated as uncontrolled Active Problem 11/25/2015 [facility] Unspecified hypothyroidism Active Problem 11/25/2015 [facility] Type 2 diabetes mellitus with hyperglycemia Active Problem 10/25/2016 [facility] Major depressive disorder, single episode, unspecified Active Problem 10/25/2016 [facility] Generalized edema Active Problem 10/25/2016 [facility] Fatigue and Generalized Weakness Active Problem 11/25/2015 [facility] Snoring Active Problem 10/25/2016 [facility] Obesity, unspecified Active Problem 10/25/2016 [facility] Hypersomnia, unspecified Active Problem 11/25/2015 [facility] Hypoxemia Active Problem 10/25/2016 [facility] Shortness of breath Active Problem 10/25/2016 [facility] Hypothyroidism, unspecified Active Problem 10/25/2016 [facility] Anxiety disorder, unspecified Active Problem 10/25/2016 [facility] Type 2 diabetes mellitus without complications Active Problem 10/25/2016 [facility] Mild persistent asthma, uncomplicated Active Problem 10/25/2016 [facility] Other fatigue Active Problem 10/25/2016 [facility] Hypersomnia, unspecified Active Problem 10/25/2016 [facility] Chest pain Active Problem 07/25/2018 [facility] Dyspnea Active Problem 07/25/2018 [facility] Hypoxia Active Problem 07/25/2018 [facility] Tachycardia Active Problem 07/25/2018 [facility] Medications Medication Details Route Status Patient Instructions Ordering Provider Order Date Source Insulin Detemir 100 Unit/Ml Pen Bedtime Active 02/26/2018 [facility] Insulin Lispro 100 Unit/1 Ml Vial Before Meals And At Bedtime Active 02/26/2018 [facility] Bupropion Hcl (Bupropion Xl) 300 Mg Tab.er.24h, 150 Mg Oral Daily Active 02/26/2018 [facility] Metoclopramide Hcl 10 Mg Tablet, 5 Mg Oral Four Times Daily Active 02/26/2018 [facility] Olanzapine 5 Mg Tablet, 10 Mg Oral Daily Active 02/26/2018 [facility] Pantoprazole Sodium (Protonix) 40 Mg Tablet.dr, 40 Mg Oral Daily Active 02/26/2018 [facility] Synjardy Xr , 12.5 Mg Oral Twice A Day Active 02/26/2018 [facility] Tramadl/Apap , Active 02/26/2018 [facility] Clonazepam 0.5 Mg Tablet, 0.5 Mg Oral Twice A Day Active 12/12/2017 [facility] Insulin Lispro (Humalog) 100 Unit/1 Ml Insuln.pen, 5 U Sub-Q Before Meals as needed for Blood Sugar Active 12/12/2017 [facility] Levothyroxine Sodium 50 Mcg Tablet, 50 Mcg Oral Daily Active 12/12/2017 [facility] Montelukast Sodium 10 Mg Tablet, 10 Mg Oral Daily Active 12/12/2017 [facility] Multivitamin (Multi-Vitamin Daily) 1 Each Tablet, Oral Daily Active 12/12/2017 [facility] Omeprazole 20 Mg Tablet., 20 Mg Oral Daily Active 12/12/2017 [facility] Insulin Detemir 100 Unit/Ml Pen, 30 Unit Sub-Q Bedtime Active [facility] 05/06/2017 [facility] Insulin Glargine (Lantus 3ML Pen) 100 Units/1 Ml Inj, 60 U Sub-Q Bedtime Active 05/06/2017 [facility] Insulin Lispro 100 Unit/1 Ml Vial, 20 Unit Sub-Q Before Meals Active [facility] 05/06/2017 [facility] Ipratropium [place] (Atrovent Hfa) 12.9 Gm Hfa.aer.ad, 2 Aer Nebullizer Three Times A Day Active [facility] 05/06/2017 [facility] Metformin Hcl 500 Mg Tablet, 1000 Mg Oral Twice A Day Active 05/06/2017 [facility] Olanzapine 10 Mg Tablet, 10 Mg Oral Daily Active 05/06/2017 [facility] Fluoxetine Hcl 20 Mg Tablet, 20 Mg Oral Three Times A Day Active 05/05/2017 [facility] Gabapentin 300 Mg Capsule, 300 Mg Oral Daily Active 05/05/2017 [facility] Glimepiride 2 Mg Tablet, 2 Mg Oral Daily Active 05/05/2017 [facility] Invokamet , 150 Mg Oral Daily Active 05/05/2017 [facility] Isosorbide Mononitrate (Isosorbide Mononitrate Er) 30 Mg Tab.er.24h, 30 Mg Oral Daily Active 05/05/2017 [facility] Levothyroxine Sodium 50 Mcg Tablet, 0.1 Mg Oral Daily Active 05/05/2017 [facility] Magnesium Oxide 400 Mg Tablet, 400 Mg Oral Daily Active 05/05/2017 [facility] Metoprolol Succinate 25 Mg Tab.er.24h, 25 Mg Oral Daily Active 05/05/2017 [facility] Olanzapine 5 Mg Tablet, 15 Mg Oral Daily Active 05/05/2017 [facility] Pantoprazole Sodium (Protonix) 40 Mg Tablet.dr, 40 Mg Oral Daily Active 05/05/2017 [facility] Potassium Chloride 10 Meq Tab.er.prt, 10 Meq Oral Three Times A Day Active 05/05/2017 [facility] Sucralfate (Carafate) 1 Gm Tablet, 1 Tab Oral Three Times A Day Active 05/05/2017 [facility] Tizanidine Hcl 4 Mg Tablet, 2 Mg Oral Twice A Day Active 05/05/2017 [facility] Topiramate 100 Mg Tablet, 100 Mg Oral Daily Active 05/05/2017 [facility] Torsemide 20 Mg Tablet, 20 Mg Oral Twice A Day Active 05/05/2017 [facility] Invokamet as directed by mouth Active 150-1000 by mouth once a day Abdellatif 03/22/2017 [facility] Aldactone 1 tablet Orally Active 200 Orally Once a day Abdellatif 10/14/2016 [facility] Aldactone 1 tablet Orally Active 100 MG Orally Once a day Abdellatif 09/23/2016 [facility] Atenolol 50 Mg Tablet, Mg Oral Daily Active 04/16/2016 [facility] Dexlansoprazole (Dexilant) 60 Mg Cap., Active 04/16/2016 [facility] Clonazepam 0.5 Mg Tablet, Active 04/11/2016 [facility] Docusate Sodium (Colace) 100 Mg Cap, Cap Oral Daily Active 04/11/2016 [facility] Duloxetine Hcl (Cymbalta) 60 Mg Capsule., Active 04/11/2016 [facility] Hydrocodone Bit/Acetaminophen ([place] 5-325 Tablet) 1 Each Tablet, Mg Pe Oral Every 4 Hours as needed Active 04/11/2016 [facility] Magnesium Oxide as directed Orally Active 400 MG Orally twice a day (bid) Abdellatif 09/29/2015 [facility] Tizanidine HCl 1 tablet as needed Orally Active 2 MG Orally twice a day (bid) Abdellatif 09/29/2015 [facility] Invokamet as directed by mouth Active 150-1000 by mouth every other day Abdellatif 08/22/2015 [facility] Aldactone 1 tablet Orally No Longer Active 50 mg Orally Once a day Abdellatif 08/22/2015 [facility] Aspirin/Calcium Carbonate/Mag (Aspirin Buffered 325 Mg Tab) 325 Mg Tablet, 1 Tab Oral Daily Active 10/11/2012 [facility] Clonazepam 1 tablet Orally Active 0.5 MG Orally Twice a day [facility] BuPROPion HCl (XL) 1 tablet in the morning Orally Active 300 MG Orally Once a day [facility] Aspirin 325 mg one tab orally Active 325 mg [facility] tablet Orally Active 5 MG Orally every 24 hrs [facility] GlyBURIDE 1 tablet Orally Active 5 MG Orally Once a day [facility] Topiramate 1 tablet Orally Active 100 mg Orally twice a day (bid) [facility] Potassium Chloride ER 1 tablet Orally Active 20 MEQ Orally three times a day (tid) [facility] Olanzapine 1 tablet Orally Active 15 MG Orally Once a day [facility] Metformin HCl 1 tablet with meals Orally Active 500 MG Orally Twice a day [facility] Fluoxetine 1 capsule in the morning Orally Active 20 mg Orally three times a day (tid) [facility] Levothyroxine Sodium 1 tablet Orally Active 100 MCG Orally Once a day [facility] Vitamin D 1 capsule Orally Active [id number] Orally Once a day [facility] Abilify 1 tablet Orally Active 20 MG Orally Once a day [facility] Metoprolol Succinate 1 tablet Orally Active 25 mg Orally once a day [facility] Spironolactone 1 tablet Orally Active 50 MG Orally Once a day [facility] MagOx 400 1 tablet Orally Active 400 (241.3 Mg) MG Orally twice a day (bid) [facility] Aspirin 325 Mg Tablet Daily Active [facility] Bupropion Hcl (Bupropion Xl) 150 Mg Tab.er.24h Daily Active [facility] Clonazepam 0.5 Mg Tablet Three Times A Day Active [facility] Fluoxetine Hcl 20 Mg Tablet Twice A Day Active [facility] Levothyroxine Sodium (Synthroid) 75 Mcg Tab Daily Active [facility] Nortriptyline Hcl 25 Mg Capsule Daily Active [facility] Olanzapine 10 Mg Tablet Daily Active [facility] Oxybutynin Chloride 5 Mg Tablet Daily Active [facility] Potassium Chloride 10 Meq Tab.er.prt Daily Active [facility] Terbinafine Hcl 250 Mg Tablet Daily Active [facility] Topiramate 100 Mg Tablet Twice A Day Active [facility] Zolpidem Tartrate 10 Mg Tablet Bedtime Active [facility] Allergies, Adverse Reactions, Alerts Substance Category Reaction Severity Reaction type Status Date Reported Comments Source Codeine Unknown Allergy to Substance Active 10/14/2007 [facility] codeine Adverse Reaction Info Not Available Adverse Reaction Active 10/20/2015 [facility] Iodine Adverse Reaction Info Not Available Adverse Reaction Active 10/20/2015 [facility] Latex Rash Intermediate Allergy to Substance Active 04/16/2016 [facility] Immunizations Immunization Date Given Site Status Last Updated Comments Source Results Order Name Results Value Reference Range Date Interpretation Comments Source Capillary blood glucose measurement by glucometer (mass/volume) 370 70 - 120 07/25/2018 [facility] Urine color determination YELLOW YELLOW 07/15/2018 [facility] Urine clarity CLEAR CLEAR 07/15/2018 [facility] Specific gravity of Urine by Test strip 1.010 1.010 - 1.025 07/15/2018 [facility] Urine pH measurement by automated test strip 6 5 - 7 07/15/2018 [facility] Urine leukocyte esterase detection by dipstick NEGATIVE NEGATIVE 07/15/2018 [facility] Urine nitrite detection NEGATIVE NEGATIVE 07/15/2018 [facility] Urine protein measurement by test strip (mass/volume) NEGATIVE NEGATIVE 07/15/2018 [facility] Urine glucose detection NEGATIVE NEGATIVE 07/15/2018 [facility] Urine ketones detection by automated test strip NEGATIVE NEGATIVE 07/15/2018 [facility] Urine urobilinogen measurement by test strip (mass/volume) 0.2 0.2 - 1 07/15/2018 [facility] Urine total bilirubin measurement (mass/volume) NEGATIVE NEGATIVE 07/15/2018 [facility] Urine erythrocytes detection NEGATIVE NEGATIVE 07/15/2018 [facility] Automated urine sediment leukocyte count by microscopy (number/high power field) 0-5 0 - 5 07/15/2018 [facility] Erythrocytes detection in urine sediment by light microscopy 0-5 0 - 5 07/15/2018 [facility] Bacteria detection in urine sediment by light microscopy NONE NONE 07/15/2018 [facility] Epithelial cells detection in urine sediment by light microscopy FEW NONE 07/15/2018 [facility] Mucus detection in urine sediment by light microscopy MANY RARE 07/15/2018 [facility] Blood leukocytes automated count (number/volume) 10.95 4.8 - 10.8 07/15/2018 [facility] Blood erythrocytes automated count (number/volume) 4.63 3.6 - 5.1 07/15/2018 [facility] Blood hemoglobin measurement (moles/volume) 14.5 12.0 - 16.0 07/15/2018 [facility] Automated blood hematocrit (volume fraction) 41.4 34.2 - 44.1 07/15/2018 [facility] Automated erythrocyte mean corpuscular volume 89.4 81 - 99 07/15/2018 [facility] Automated erythrocyte mean corpuscular hemoglobin (mass per erythrocyte) 31.3 28 - 32 07/15/2018 [facility] Automated erythrocyte mean corpuscular hemoglobin concentration measurement (mass/volume) 35.0 31 - 35 07/15/2018 [facility] RDW BldCo-Rto 13.2 11.7 - 14.4 07/15/2018 [facility] Automated blood platelet count (count/volume) 287 140 - 360 07/15/2018 [facility] Automated blood segmented neutrophil count as percentage of total leukocytes 60.3 38.7 - 80.0 07/15/2018 [facility] Automated blood lymphocyte count as percentage ot total leukocytes 30.3 18.0 - 39.1 07/15/2018 [facility] Automated blood monocyte count as percentage of total leukocytes 4.7 4.4 - 11.3 07/15/2018 [facility] Automated blood eosinophil count as percentage of total leukocytes 3.7 0.0 - 6.0 07/15/2018 [facility] Automated blood basophil count as percentage of total leukocytes 0.7 0.0 - 1.0 07/15/2018 [facility] IM GRANULOCYTES % 0.3 0.0 - 1.0 07/15/2018 [facility] Automated blood neutrophil count 6.6 2.1 - 6.9 07/15/2018 [facility] Blood lymphocytes count (number/volume) 3.3 1.0 - 3.2 07/15/2018 [facility] Blood monocytes automated count (number/volume) 0.5 0.2 - 0.8 07/15/2018 [facility] Automated blood eosinophil count 0.4 0.0 - 0.4 07/15/2018 [facility] Automated blood basophil count (count/volume) 0.1 0.0 - 0.1 07/15/2018 [facility] Absolute Immature Granulocyte (auto 0.03 0 - 0.1 07/15/2018 [facility] Serum or plasma sodium measurement (moles/volume) 135 136 - 145 07/15/2018 [facility] Serum or plasma potassium measurement (moles/volume) 3.1 3.5 - 5.1 07/15/2018 [facility] Serum or plasma chloride measurement (moles/volume) 100 98 - 107 07/15/2018 [facility] Serum or plasma carbon dioxide, total measurement (moles/volume) 22 22 - 29 07/15/2018 [facility] Serum or plasma anion gap 16.1 8 - 16 07/15/2018 [facility] Serum or plasma urea nitrogen measurement (mass/volume) 10 7 - 26 07/15/2018 [facility] Serum or plasma creatinine measurement (mass/volume) 0.81 0.57 - 1.11 07/15/2018 [facility] Serum or plasma urea nitrogen/creatinine mass ratio 12 6 - 25 07/15/2018 [facility] Estimated glomerular filtration rate (GFR) determination > 60 60 07/15/2018 [facility] Glucose measurement 250 74 - 118 07/15/2018 [facility] Serum or plasma calcium measurement (mass/volume) 10.7 8.4 - 10.2 07/15/2018 [facility] Serum or plasma total bilirubin measurement (mass/volume) 0.2 0.2 - 1.2 07/15/2018 [facility] Aspartate Amino Transf (AST/SGOT) 20 5 - 34 07/15/2018 [facility] Serum or plasma alanine aminotransferase measurement (enzymatic activity/volume) 26 0 - 55 07/15/2018 [facility] Serum or plasma protein measurement (mass/volume) 8.3 6.5 - 8.1 07/15/2018 [facility] Serum or plasma albumin measurement (mass/volume) 4.1 3.5 - 5.0 07/15/2018 [facility] Plasma globulin measurement (mass/volume) 4.2 2.3 - 3.5 07/15/2018 [facility] Serum or plasma albumin/globulin mass ratio 1.0 0.8 - 2.0 07/15/2018 [facility] Serum or plasma alkaline phosphatase measurement (enzymatic activity/volume) 159 40 - 150 07/15/2018 [facility] Serum or plasma creatine kinase measurement (enzymatic activity/volume) 110 29 - 168 07/15/2018 [facility] Serum or plasma creatine kinase MB measurement (mass/volume) 0.80 0 - 5.0 07/15/2018 [facility] Troponin I measurement by highly sensitive enzyme immunoassay < 0.001 0 - 0.300 07/15/2018 [facility] Serum or plasma amylase measurement (enzymatic activity/volume) 34 25 - 125 07/15/2018 [facility] Serum or plasma lipase measurement (enzymatic activity/volume) 36 8 - 78 07/15/2018 [facility] Serum or plasma magnesium measurement (mass/volume) 2.0 1.3 - 2.1 06/28/2018 [facility] BNP Bld-mCnc < 10.0 0 - 100 06/28/2018 [facility] Serum or plasma thyrotropin measurement by detection limit <=0.005 miu/l (units/volume) 3.183 0.350 - 4.940 06/28/2018 [facility] Prothrombin time (PT) in platelet poor plasma by coagulation assay 11.7 11.9 - 14.5 06/28/2018 [facility] INR in Platelet poor plasma by Coagulation assay 0.79 06/28/2018 [facility] Activated partial thromboplastin time (aPTT) in platelet poor plasma bycoagulation assay 25.9 23.8 - 35.5 06/28/2018 [facility] Transitional cells detection in urine sediment by light microscopy FEW NONE 06/28/2018 [facility] Blood methemoglobin measurement (mass/volume) 0.4 0.4 - 1.5 02/24/2018 [facility] Serum or plasma hepatitis A virus IgM antibody detection by immunoassay Negative 02/23/2018 [facility] Serum or plasma hepatitis B virus surface antigen detection by immunoassay Negative 02/23/2018 [facility] Serum or plasma hepatitis B virus core IgM antibody detection by immunoassay Negative 02/23/2018 [facility] Serum hepatitis C virus antibody detection <0.1 02/23/2018 [facility] Fibrin D-dimer DDU measurement in platelet poor plasma (mass/volume) 0.44 0.00 - 0.45 02/23/2018 [facility] Serum or plasma thyroxine (T4) free measurement (mass/volume) 1.09 0.9 - 1.8 02/23/2018 [facility] Arterial blood pH measurement 7.31 7.31 - 7.41 02/23/2018 [facility] pCO2 BldA 40 41 - 51 02/23/2018 [facility] pCO2 BldA 69 80 - 105 02/23/2018 [facility] Arterial blood bicarbonate measurement (moles/volume) 20 23 - 28 02/23/2018 [facility] Arterial blood base excess by calculation -6.0 -2 - 3 - 2 02/23/2018 [facility] Arterial blood oxygen saturation measurement 92.0 95 - 98 02/23/2018 [facility] FiO2 21 02/23/2018 [facility] Hemoglobin A1c Percent 9.6 4.0 - 7.0 02/23/2018 [facility] Yeast detection in urine sediment by light microscopy FEW NONE 02/22/2018 [facility] Free thyroxine index 2.3936 1.4 - 3.8 02/22/2018 [facility] Serum or plasma thyroxine (T4) measurement (mass/volume) 10.48 4.5 - 10.9 02/22/2018 [facility] Serum or plasma triiodothyronine resin uptake (T3RU) 22.84 22.5 - 37.0 02/22/2018 [facility] Blood culture NO GROWTH AFTER 5 DAYS, FINAL REPORT 02/22/2018 [facility] Urine opiates screening test NEGATIVE NEGATIVE 12/12/2017 [facility] Barbiturates screen, urine NEGATIVE NEGATIVE 12/12/2017 [facility] Urine phencyclidine detection by screening method NEGATIVE NEGATIVE 12/12/2017 [facility] Urine amphetamines detection by screen method > 1000 ng/mL NEGATIVE NEGATIVE 12/12/2017 [facility] Urine Methamphetamines Screen NEGATIVE NEGATIVE 12/12/2017 [facility] Urine benzodiazepines detection by screening method NEGATIVE NEGATIVE 12/12/2017 [facility] Urine cocaine measurement (mass/volume) NEGATIVE NEGATIVE 12/12/2017 [facility] Urine cannabinoids detection by screening method NEGATIVE NEGATIVE 12/12/2017 [facility] Urine methadone screen NEGATIVE NEGATIVE 12/12/2017 [facility] Urine human chorionic gonadotropin (hCG) detection NEGATIVE NEGATIVE 12/12/2017 [facility] Serum or plasma acetaminophen measurement by screening method (mass/volume) < 3 10 - 30 12/12/2017 [facility] Serum or plasma ethanol measurement (mass/volume) < 10.0 0.0 - 10.0 12/12/2017 [facility] Serum or plasma salicylates measurement (mass/volume) < 5.0 0 - 30 12/12/2017 [facility] Vital Signs Vital Sign Value Date Comments Source Weight 260 10/20/2015 [facility] Height 64.75 10/20/2015 [facility] Diastolic (mm Hg) 80 10/20/2015 [facility] Systolic (mm Hg) 112 10/20/2015 [facility] Respitory Rate 18 10/20/2015 [facility] Temperature Oral (F) 98 F 10/20/2015 [facility] Weight 258 09/29/2015 [facility] Height 64.75 09/29/2015 [facility] Diastolic (mm Hg) 82 09/29/2015 [facility] Systolic (mm Hg) 124 09/29/2015 [facility] Respitory Rate 16 09/29/2015 [facility] Heart Rate 106 09/29/2015 [facility] Weight 265 08/22/2015 [facility] Height 64.75 08/22/2015 [facility] Diastolic (mm Hg) 86 08/22/2015 [facility] Systolic (mm Hg) 122 08/22/2015 [facility] Respitory Rate 16 08/22/2015 [facility] Heart Rate 96 08/22/2015 [facility] Encounters Location Location Details Encounter Type Encounter Number Reason For Visit Attending Provider ADM Date DC Date Status Source [facility] [id number] 12/23/2014 12/23/2014 [facility] [id number] 12/23/2014 12/23/2014 [facility] [id number] 12/23/2014 12/23/2014 [facility] [id number] 12/23/2014 12/23/2014 [facility] [id number] 12/23/2014 12/23/2014 [facility] [id number] 12/23/2014 12/23/2014 [facility] [id number] 12/23/2014 12/23/2014 [facility] N/P Ref by [id number] 08/22/2015 08/22/2015 [facility] N/P Ref by [id number] 08/22/2015 08/22/2015 [facility] N/P Ref by [id number] 08/22/2015 08/22/2015 [facility] N/P Ref by [id number] 08/22/2015 08/22/2015 [facility] N/P Ref by [id number] 08/22/2015 08/22/2015 [facility] N/P Ref by [id number] 08/22/2015 08/22/2015 [facility] N/P Ref by [id number] 08/22/2015 08/22/2015 [facility] low k [id number] 09/29/2015 09/29/2015 [facility] low k [id number] 09/29/2015 09/29/2015 [facility] low k [id number] 09/29/2015 09/29/2015 [facility] low k [id number] 09/29/2015 09/29/2015 [facility] low k [id number] 09/29/2015 09/29/2015 [facility] low k [id number] 09/29/2015 09/29/2015 [facility] 3wk f/u--[facility] [id number] 10/20/2015 10/20/2015 [facility] 3wk f/u--[facility] [id number] 10/20/2015 10/20/2015 [facility] 3wk f/u--[facility] [id number] 10/20/2015 10/20/2015 [facility] Specialties 3wk f/u--[facility] [id number] 10/20/2015 10/20/2015 [facility]/u--[facility] [id number] 10/20/2015 10/20/2015 [facility] Scan Auth: [facility] [id number] 10/28/2015 10/28/2015 [facility] Scan Auth: [facility] [id number] 10/28/2015 10/28/2015 [facility] Scan Auth: [facility] [id number] 10/28/2015 10/28/2015 [facility] Scan Auth: [facility] [id number] 10/28/2015 10/28/2015 [facility] Auth: [facility] [id number] 11/09/2015 11/09/2015 [facility] Auth: [facility] [id number] 11/09/2015 11/09/2015 [facility] D/c O2 [id number] 11/24/2015 11/24/2015 [facility] D/[facility] O2 [id number] 11/24/2015 11/24/2015 [facility] D/[facility] O2 [id number] 11/24/2015 11/24/2015 [facility] Cancellation [id number] 08/30/2016 08/30/2016 [facility] Departed Emergency Room [id number] LAILA JARAMILLO MD 10/10/2017 10/10/2017 [facility] Departed Emergency Room [id number] DILIA LOMELI MD 12/12/2017 12/13/2017 [facility] Departed Emergency Room [id number] DILIA LOMELI MD 02/01/2018 02/02/2018 [facility] Discharged Inpatient [id number] FRANNIE STEINBERG MD 02/22/2018 02/26/2018 [facility] Departed Emergency Room [id number] ELLIOT LIMA MD 03/31/2018 04/01/2018 [facility] Departed Emergency Room [id number] KATE BANGURA MD 06/28/2018 06/28/2018 [facility] Departed Emergency Room [id number] DILIA LOMELI MD 07/15/2018 07/16/2018 [facility] Departed Emergency Room [id number] DILIA LOMELI MD 07/25/2018 07/25/2018 [facility] Procedures Procedure Code Date Perfomer Comments Source Computed tomography of brain without radiopaque contrast [id number] 07/25/2018 [facility] Computed tomography of brain without radiopaque contrast [id number] 06/28/2018 [facility] X-ray of chest, two views [id number] 02/25/2018 [facility] Magnetic resonance cholangiopancreatography (MRCP) without contrast [id number] 02/24/2018 [facility] X-ray of chest, two views [id number] 02/22/2018 [facility] Computed tomography of chest with contrast [id number] 02/22/2018 [facility]
--- OUTSIDE RECORDS SUMMARY | 2018-08-16 17:48 | XMS REPORT ---
Author Author Parisa Johnston [employer] Address Unknown Phone Unavailable Care Team Providers Care Eligibility Worker Name Role Phone Parisa Johnston CP Unavailable Encounters Encounter Location Date 3wk f/u--[facility] October 20, 2015 VQ Scan Auth: [facility] October 28, 2015 D/c O2 [facility] November 24, [address] Auth: [facility] November 09, 2015 Sleep Study [facility] December 23, 2014 N/P Ref by [facility] Aug 22, 2015 low k [facility] Sep 29, 2015 Cancellation [facility] Aug 30, 2016 Problems Problem Type Condition ICD-9 Code Onset [...]
[2018-08-16] MEDS ORDERED: SODIUM CHLORIDE 0.9% 1000ML 1,000 ML IV SCH (18:30)
[2018-08-16] MEDS ORDERED: KETOROLAC TROMETHAMINE 30 MG/ML VIAL IV NR (18:45)
[2018-08-16] MEDS ORDERED: DIPHENHYDRAMINE HCL INJ 50 MG/ML VIAL IV ONE (18:45)
[2018-08-16] MEDS ORDERED: METOCLOPRAMIDE HCL 10 MG/2ML VIAL IV ONE (18:45)
[2018-08-16 19:15] LABS: BASOPHILS # (AUTO) 0.1 (0.0-0.1); BASOPHILS % 0.7 % (0.0-1.0); EOSINOPHILS # (AUTO) 0.3 (0.0-0.4); EOSINOPHILS % 3.5 % (0.0-6.0); HEMATOCRIT 42.5 % (34.2-44.1); HEMOGLOBIN 14.6 g/dL (12.0-16.0); LYMPHOCYTES # (AUTO) 2.9 (1.0-3.2); LYMPHOCYTES % 30.6 % (18.0-39.1); MEAN CORPUSCULAR HEMOGLOBIN 31.5 pg (28-32); MEAN CORPUSCULAR HGB CONC 34.4 g/dL (31-35); MEAN CORPUSCULAR VOLUME 91.6 fL (81-99); MONOCYTES # (AUTO) 0.5 (0.2-0.8); MONOCYTES % 5.7 % (4.4-11.3); NEUTROPHILS # (AUTO) 5.6 (2.1-6.9); NEUTROPHILS % 59.2 % (38.7-80.0); PLATELET COUNT 261 x10e3/uL (140-360); RED BLOOD COUNT 4.64 x10e6/uL (3.6-5.1); RED CELL DISTRIBUTION WIDTH 12.6 % (11.7-14.4)
--- NOTE | 2018-08-16 19:22 | NUR ---
PT GIVEN ADDITIONAL WARM BLANKET PER REQUEST, STATES BILLINGS UNCHANGED.
[2018-08-16 19:28] LABS: ANION GAP 14.6 mmol/L (8-16); CALCIUM 9.5 mg/dL (8.4-10.2); CREATININE, SERUM 0.97 mg/dL (0.57-1.11); MAGNESIUM 2.2 MG/DL (1.3-2.1); POTASSIUM 3.6 mmol/L (3.5-5.1)
--- NOTE | 2018-08-16 19:37 | NUR ---
[facility] 8/10 after medications.
--- NOTE | 2018-08-16 19:51 | Diagnostic Imaging Report ---
History:History of migraine headaches Comparison studies: CT head 07/25/2018 Technique: Axial images were obtained from the skull base to the vertex. Coronal and sagittal reconstructions obtained from the axial data. Dose modulation, iterative reconstruction, and/or weight based adjustment of the mA/kV was utilized to reduce the radiation dose to as low as reasonably achievable. Findings: Scalp/skull: No abnormalities. No fractures, blastic or lytic lesions. Extra-axial spaces: No masses. No fluid collections. Brain sulci: Appropriate for age. Ventricles: Normal in size and configuration. No hydrocephalus. Parenchyma: No abnormal densities. No masses, hemorrhage, acute or chronic cortical vascular insults. Sellar/suprasellar region: No abnormalities Craniocervical junction: Patent foramen magnum. No Chiari one malformation. IMPRESSION: No abnormalities . Stable examination. Signed by: DR Sandor Mercer M.D. on 08/16/2018 7:48 PM
--- NOTE | 2018-08-16 20:44 | NUR ---
REPORTS FEELS BETTER, PAIN 5/10. AWAKE ALERT SKIN W/D RESP NONLAB. NAD NOTED.
== END 2018-08-16 21:13 | disposition home or self-care (01) ==
LOC: ER 17:44
DX: G43.111 Migraine with aura, intractable, with status migrainosus (principal); F41.9 Anxiety disorder, unspecified; F32.9 Major depressive disorder, single episode, unspecified
CPT/HCPCS: 36415; 70450; 80048; 83735; 85025; 99284; J1200; J1885; J2765; J7030

== ENCOUNTER 2019-10-06 18:07 | Emergency (ER) | payer OTHER ==
[~2019-10-06] VITALS: Ht 162.6 cm; Wt 110.7 kg
--- OUTSIDE RECORDS SUMMARY | 2019-10-06 18:11 | XMS REPORT | Summary of Care ---
Author Author [facility] - Health Organization [facility] - Health Address Unknown Phone Unavailable Care Team Providers Care Bee Breeder Name Role Phone Reyna Clemens PCP Encounter Details Care Team Description Date Type Department Doctor Unassigned, [place] [address] [place] [address] 09/23/2019 Orders Only [facility] [address] [place] [address] Allergies Comments Active Allergy Reactions Severity Noted Date Codeine Hives 09/10/2019 Iodine Hives 09/10/2019 Latex Hives 09/10/2019 documented as of this encounter (statuses as of 09/23/2019) Medications End Date Status Medication Sig Dispensed Refills Start Date Active aspirin 325 mg tablet Take 325 mg 0 by mouth daily. Active atorvastatin 20 mg tablet Take 20 mg by 0 mouth at bedtime. Active buPROPion XL 150 mg 24 hr Take 150 mg 0 tablet by mouth daily. Active sucralfate (CARAFATE) 1 Take 1 g by 0 gram tablet mouth before meals and at bedtime. Active clonazePAM 0.5 mg tablet Take 0.5 mg 0 by mouth daily. Active FLUoxetine 20 mg capsule Take 20 mg by 0 mouth daily. Active levothyroxine 100 mcg Take 100 mcg 0 tablet by mouth every morning. Active OLANZapine 10 mg tablet Take 10 mg by 0 mouth daily. Active oxybutynin 10 mg 24 hr Take 10 mg by 0 tablet mouth daily. Active pantoprazole 40 mg EC Take 40 mg by 0 tablet mouth 2 (two) times daily. Active potassium chloride 10 mEq Take 10 mEq 0 CR tablet by mouth daily. Active PREDNISONE 50 mg tablet Take 50 mg by 0 mouth SEE-INSTRUCTI ONS. Active primidone 50 mg tablet Take 50 mg by 0 mouth daily. Active propranolol 40 mg tablet Take 40 mg by 0 mouth daily. Active metoclopramide HCl Take 10 mg by 0 (REGLAN) 10 mg tablet mouth before meals and at bedtime. Active topiramate 100 mg tablet Take 100 mg 0 by mouth daily. Active traMADol 50 mg tablet Take 50 mg by 0 mouth 2 (two) times daily. Active ondansetron (ZOFRAN) 4 mg Take 4 mg by 0 tablet mouth every morning as needed. documented as of this encounter (statuses as of 09/23/2019) Active Problems Not on filedocumented as of this encounter (statuses as of 09/23/2019) Social History Date Tobacco Use Types Packs/Day Years Used Never Assessed Sex Assigned at Date Recorded Not on file Industry Job Start Date Occupation Not on file Not on file Not on file Travel End Travel History Travel Start No recent travel history available. documented as of this encounter Last Filed Vital Signs Not on filedocumented in this encounter Plan of Treatment Health Maintenance Due Date Last Done Comments DTaP,Tdap,and Td Vaccines 1976 (1 - Tdap) PAP SMEAR 1986 Breast Cancer Screening 2005 (MAMMOGRAM) COLONOSCOPY 2015 Zoster Recombinant 2015 Vaccine (SHINGRIX) (1 of 2) INFLUENZA VACCINE (#1) 2019 PNEUMOCOCCAL 0-64 YEARS Aged Out No longer eligible based COMBINED SERIES on patient's age to complete this topic documented as of this encounter Procedures Comments Procedure Name Priority Date/Time Associated Diagnosis ASSIGNMENT OF BENEFITS Routine 09/23/2019 5:41 AM DIRECT [employer]STER documented in this encounter Results Not on filedocumented in this encounter Insurance Type Payer Benefit Subscriber ID Effective Phone Address Plan / Dates Group PPO/POS [facility] [id number] 2016-[facility] PPO/POS documented as of this encounter
--- OUTSIDE RECORDS SUMMARY | 2019-10-06 18:11 | XMS REPORT | Summary of Care ---
Author Author [facility] Organization [facility] Address Unknown Phone Unavailable Care Team Providers Care Pressroom Supervisor Name Role Phone Reyna Clemens PCP Reason for Visit * Auth/Cert Referred By Contact Referred To Contact Status Reason Specialty Diagnoses / Procedures [facility] Preop [address] [place] [address] Surgery Diagnoses Epigastric pain [R10.13] Gastroparesis [K31.84] Obesity, Class III, BMI 40-49.9 (morbid obesity) [E66.01] Dietary counseling and surveillance [Z71.3] Diabetes Type 2 [E11.9] P rocedures [facility] ESOPHAGOGASTRODUOD ENOSCOPY Encounter Details Care Team Description Date Type Department Halima Castro MD [address] [place] [address] [phone] Lucia Patel MD [address] [place], [place] [address] Morbid obesity with body mass index of 40.0-49.9 09/23/2019 [facility] Health Post Encounter Anesthesia Care Unit [facility] [address] [place] [address] Allergies Comments Active Allergy Reactions Severity Noted [...] encounter (statuses as of 09/23/2019) Active Problems Problem Noted Date Morbid obesity with body mass index of 40.0-49.9 09/23/2019 documented as of this encounter (statuses as of 09/23/2019) Social History Date Tobacco Use Types Packs/Day Years Used Never Assessed Sex Assigned at Date Recorded Not on file Industry Job Start Date Occupation Not on file Not on file Not on file Travel End Travel History Travel Start No recent travel history available. documented as of this encounter Last Filed Vital Signs Reading Time Taken Comments Vital Sign 108/74 09/23/2019 8:01 AM [employer] Blood Pressure 55 09/23/2019 8:05 AM [employer]BER Pulse 36.4 C (97.5 F) 09/23/2019 7:40 AM [employer]ICE TE[employer] MEMBER Temperature 15 09/23/2019 8:01 AM [employer] SERVICE TE[employer] MEMBER Respiratory Rate 93% 09/23/2019 8:05 AM [employer]ICE TE[employer] MEMBER Oxygen Saturation - - Inhaled Oxygen Concentration 121.2 kg (267 lb 3.2 oz) 09/23/2019 6:22 AM [employer]ICE TE[employer] MEMBER Weight 165.1 cm (5' 5") 09/23/2019 6:22 AM [employer]ODY SERVICE TEAM MEMBER Height 44.46 09/23/2019 6:22 AM [employer]ODY SERVICE TE[employer] MEMBER Body Mass Index documented in this encounter Discharge Instructions * Instructions* Radha Savage, RN - 09/23/2019 General Discharge Instructions: Follow instructions as indicated below: 1. The medication that was used will be acting in your system for the next 24 ho urs, so you might feel a little drowsy, with impaired judgment and or motor func tion. This feeling should go wear off. Because the medication is still in your system for the next 24 hours you SHOULD NOT: Drive a car, operate machinery or power tool. Drink any alcohol beverages (including beer or wine). Make any important decisions or sign any legal documents. 2. You should rest the remainder of the day and not engage in any physical activ ity. Move slowly today. After lying down, sit on the edge of the bed for a mom ent before standing. YOU ARE RESPONSIBLE FOR HAVING SOMEONE AT HOME WITH YOU DU RING THE AFTERNOON AND NIGHT IMMEDIATELY FOLLOWING YOUR SURGERY. Patient should cough and deep breathe every 2-4 hours while awake to avoid respiratory complic ations. 3. Activity: as tolerated 4. Wound/ dressing care: none 5. Special Instructions: Follow up in two weeks 6. Other discharge instructions liquid diet for two days 7. Weight: In general, sudden weight gains or losses should be reported to your provider. Cardiac patients should weigh daily and notify their provider for a w eight gain of 3 pounds per day or 5 pounds per week. 8. Tobacco Avoidance: Follow recommendations below 9. Because the medications used could procedure some residual nausea and vomitin g after you go home, you should eat lightly today, starting with clear liquids ( broth, soft drinks, apple juice, jello) and toast or crackers, progressing to bl and solid foods and then to your normal diet as tolerated, unless otherwise stat ed by your surgeon. If you get sick, wait a couple of hours and then begin to e at. After 24 hours the nausea should be gone. If your nausea persists, contact your physician. 10. You may experience some pain and your physician will advise you on what to t mata for discomfort. This should be taken as directed. If the pain is not relie nano, contact your physician. You may also have a sore throat from the airway th at was in place. You may uses lozenges, throat spray (such as Chloraseptic), or warm salt water gargles for symptomatic relief. 11. If you feel warm, take your temperature. If it is 101 degrees or above shauna l your physician. 12. If you are unable to urinate within five hours after your procedure, call y our physician. 13. The type of surgery performed will determine how much bleeding (if any) to e xpect. Normally, some spotting might occur. If your dressing pad becomes satur ated, notify your physician. Elevate surgical site, if applicable, to reduced s welling and pain. Tips on preventing a surgical site infection.. Dont smoke. It is best to quit at least 30 days before surgery, but quitting after surgery is also helpful. If you are diabetic, keep your blood sugar well controlled. WASH YOUR HANDS. Keep your wound clean and remember to wash your hands before a nd after contact with the area. All health care workers should also wash their hands or use an alcohol based hoyt d rub prior to examining you. If antibiotics are prescribed, take them as directed. Finish the entire course of antibiotics. Call your doctor if you have signs of infection: ? Increased tenderness at the surgical site ? Red streaks or increased redness of the area ? Bad-smelling discharge from the incision ? Fever of 101F or higher ? General tired feeling that doesnt improve If you experience any of the following symptoms fever greater than 101, uncontro lled pain not relieved by pain medications, uncontrolled nausea or vomiting or a ny other concerns you have, please follow up with your physician. For worsening symptoms/changing condition/problems or questions: Non-emergency/urgent: Call the [facility] Mobile Hotline at or Emergency: Go to the closest emergency room or call 911 If you receive the patient satisfaction survey by mail please complete and retur n and let us know how we are doing. TOBACCO AVOIDANCE Exposure to tobacco either from smoking or from second hand (environmental) smok e or smokeless tobacco (snuff) is damaging to your health. This information is to encourage everyone to avoid tobacco exposure. It is recommended that you: ? If you smoke or use smokeless tobacco, we encourage you to quit. ? If you have already quit smoking, continue your good work! ? If you do not smoke or use smokeless tobacco, do not start. ? Avoid secondhand smoke. Additional Resources You may want to contact these organizations for further information on smoking a nd how to quit. [employer], http://www.lungusa.org/stop-smoking/ [employer], http://www.cancer.org/Healthy/StayAwayfromTobacco/index [employer], http://www.heart.org/HEARTORG/GettingHealthy/QuitSmo cj/Quit-Smoking_[facility]_001085_SubHomePage.jsp documented in this encounter Plan of Treatment Order Schedule Name Type Priority Associated Diagnoses ONCE for 1 Occurrences starting 09/23/2019 until 09/23/2019 POCT Glucose LAB Routine Health Maintenance Due Date Last Done Comments [...] Comments Procedure Name Priority Date/Time Associated Diagnosis EGD (ENDO) Routine 09/23/2019 7:13 AM [employer]BER POCT GLUCOSE (AUTOMATED) Routine 09/23/2019 6:03 AM [employer]ICE TE[employer] MEMBER DSU PRE-OP Routine 09/09/2019 12:01 AM [employer]ICE TE[employer] MEMBER documented in this encounter Results * POCT GLUCOSE (AUTOMATED) (09/23/2019 6:03 AM BODY SERVICE TEAM MEMBER) POCT GLU 173 (H)Comment: 1234 70 - 110 mg/dL [facility] Specimen Blood Performing Organization Address City/State/Zipcode Phone Number [facility] CLIA: [id number], [address] [place], [place] [id number] St documented in this encounter Visit Diagnoses Diagnosis Epigastric pain - Primary Abdominal pain, epigastric Morbid obesity with body mass index of 40.0-49.9 documented in this encounter Administered Medications Action Date Dose Rate Site Medication Order MAR Action 09/23/2019 7:11 AM [employer] TE[employer]BER 1,000 mL 42 mL/hr NaCl 0.9% (NS) IV infusion 1,000 mL New Bag at 42 mL/hr, IV Infusion, CONTINUOUS, Starting Sat09/23/19 at 0600, Until Discontinued, Routine, DSU Pre-op 09/23/2019 6:51 AM BODY SERVICE TEAM MEMBER 80 mg simethicone (GAS RELIEF (SIMETHICONE)) Given 40 mg/0.6 mL drops PRN, Starting Sat09/23/19 at 0651, Until Discontinued, Routine, Intra-op documented in this encounter Insurance Type Payer Benefit Subscriber ID Effective Phone Address Plan / Dates Group PPO/POS [facility] [id number] 2016-[facility] PPO/POS documented as of this encounter
[2019-10-07 06:16] VITALS: BP 128/84
== END 2019-10-06 21:00 | disposition home or self-care (01) ==
LOC: ER 18:07
DX: M25.562 Pain in left knee (principal); M25.561 Pain in right knee; R21 Rash and other nonspecific skin eruption; I10 Essential (primary) hypertension; E11.9 Type 2 diabetes mellitus without complications; F41.9 Anxiety disorder, unspecified
CPT/HCPCS: 93970

== ENCOUNTER 2019-10-19 15:37 | Emergency (ER) | payer OTHER ==
[~2019-10-19] VITALS: Ht 162.6 cm; Wt 110.7 kg
[2019-10-19] MEDS ORDERED: METOCLOPRAMIDE HCL 10 MG/2ML VIAL IV STA (15:56)
[2019-10-19 16:16] LABS: BASOPHILS % 0.2 % (0.0-1.0); EOSINOPHILS % 0.2 % (0.0-6.0); HEMATOCRIT 40.9 % (34.2-44.1); HEMOGLOBIN 13.7 g/dL (12.0-16.0); LYMPHOCYTES # (AUTO) 1.3 (1.0-3.2); LYMPHOCYTES % 9.6 % (18.0-39.1); MEAN CORPUSCULAR HGB CONC 33.5 g/dL (31-35); MEAN CORPUSCULAR VOLUME 89.5 fL (81-99); MONOCYTES # (AUTO) 0.4 (0.2-0.8); MONOCYTES % 2.8 % (4.4-11.3); NEUTROPHILS # (AUTO) 12.1 (2.1-6.9); NEUTROPHILS % 86.8 % (38.7-80.0); PLATELET COUNT 338 x10e3/uL (140-360); RED BLOOD COUNT 4.57 x10e6/uL (3.6-5.1); RED CELL DISTRIBUTION WIDTH 12.6 % (11.7-14.4)
[2019-10-19 16:27] LABS: INR 0.87; PROTHROMBIN TIME 12.3 seconds (11.9-14.5)
[2019-10-19 16:34] LABS: ANION GAP 14.9 mmol/L (8-16); CALCIUM 9.9 mg/dL (8.4-10.2); CREATININE, SERUM 1.05 mg/dL (0.57-1.11); POTASSIUM 3.9 mmol/L (3.5-5.1)
[2019-10-19] MEDS ORDERED: SODIUM CHLORIDE 0.9% 1000ML 1,000 ML IV STA ×2 (16:36→18:51)
--- NOTE | 2019-10-19 16:43 | NUR ---
pt given opportunity to ask questions prior signing consent; dr lazaro answered pt questions and pt signed consent
[2019-10-19 17:23] LABS: APPEARANCE,CSF CLEAR (CLEAR); COLOR,CSF COLORLESS (COLORLESS); TUBE NUMBER 3
[2019-10-19 17:24] LABS: WHITE BLOOD CELL,CSF 0 cells/uL (0-5)
[2019-10-19] MEDS ORDERED: KETOROLAC TROMETHAMINE 30 MG/ML VIAL IV STA (17:31)
[2019-10-19] MEDS ORDERED: KETOROLAC TROMETHAMINE 30 MG/ML VIAL ONE (17:38)
[2019-10-19 17:58] VITALS: BP 103/66
== END 2019-10-19 20:50 | disposition home or self-care (01) ==
LOC: ER 15:37
DX: R51 Headache (principal); E11.9 Type 2 diabetes mellitus without complications; I50.9 Heart failure, unspecified; F41.9 Anxiety disorder, unspecified
CPT/HCPCS: 36415; 62270; 80048; 82948; 85025; 85610; 89051; 99283; J1885; J2765; J7030

== ENCOUNTER 2019-11-16 18:15 | Emergency (ER) | payer OTHER ==
[~2019-11-16] VITALS: Ht 162.6 cm; Wt 110.7 kg
[2019-11-16] MEDS ORDERED: SODIUM CHLORIDE 0.9% 1000ML 1,000 ML IV STA (18:38)
[2019-11-16] MEDS ORDERED: KETOROLAC TROMETHAMINE 30 MG/ML VIAL IV STA (18:38)
[2019-11-16] MEDS ORDERED: METOCLOPRAMIDE HCL 10 MG/2ML VIAL IV ONE (18:45)
[2019-11-16] MEDS ORDERED: DIPHENHYDRAMINE HCL INJ 50 MG/ML VIAL IV ONE (18:45)
[2019-11-16] MEDS ORDERED: KETOROLAC TROMETHAMINE 30 MG/ML VIAL ONE (18:50)
[2019-11-16] MEDS ORDERED: METOCLOPRAMIDE HCL 10 MG/2ML VIAL ONE (18:50)
[2019-11-16] MEDS ORDERED: DIPHENHYDRAMINE HCL INJ 50 MG/ML VIAL ONE (18:51)
[2019-11-16 19:51] VITALS: BP 139/79
== END 2019-11-16 20:05 | disposition home or self-care (01) ==
LOC: ER 18:15
DX: G44.211 Episodic tension-type headache, intractable (principal); I10 Essential (primary) hypertension; E11.9 Type 2 diabetes mellitus without complications; F41.9 Anxiety disorder, unspecified
CPT/HCPCS: 96374; 99283; J1200; J1885; J2765; J7030

== ENCOUNTER 2020-09-21 12:44 | Emergency (ER) | payer OTHER ==
[~2020-09-21] VITALS: Ht 165.1 cm; Wt 122.5 kg
[2020-09-21] MEDS ORDERED: TETANUS/DIPHTHERIA TOX ADULT 0.5 ML SYR IM ONE (13:15)
[2020-09-21] MEDS ORDERED: HYDROCODONE/APAP 7.5MG-325MG 1 EA TAB PO ONE (13:15)
[2020-09-21 16:40] VITALS: BP 132/93
== END 2020-09-21 16:41 | disposition home or self-care (01) ==
LOC: ER 13:06
DX: S50.01XA Contusion of right elbow, initial encounter (principal); S90.32XA Contusion of left foot, initial encounter; S93.402A Sprain of unspecified ligament of left ankle, initial encounter; W01.0XXA Fall on same level from slipping, tripping and stumbling without subsequent striking against object, initial encounter; Y93.01 Activity, walking, marching and hiking; Y92.008 Other place in unspecified non-institutional (private) residence as the place of occurrence of the external cause; E11.9 Type 2 diabetes mellitus without complications; I50.9 Heart failure, unspecified; E03.9 Hypothyroidism, unspecified; F41.9 Anxiety disorder, unspecified
CPT/HCPCS: 90471; 90714; 99284